=== PATIENT | female | born 1950 | race Caucasian/White ===

== ENCOUNTER 2016-07-28 14:42 | Emergency (ER) | payer MEDICARE, MEDICAID ==
[~2016-07-28 14:42] MED LIST: ACTOS30 MG PO; DILTIAZEM HCL30 MG PO; FLUOXETINE HCL20 MG PO; FOSAMAX70 M1 PO; GLIPIZIDE10 MG PO; GLUCOSAMINE CH1 EAC2 PO; LIPITOR20 MG PO; MELOXICAM15 MG PO; METFORMIN HCL500 M2 PO; METFORMIN HCL500 MG PO; MULTIVITAMIN1 TAB PO; NORCO 5-325 TA1 EACH PO; NORCO 5/325 TAB1 TAB PO; UNICOMPLEX-M1 TAB PO; VITAMIN D2000 UNIT PO; ZESTORETIC PO
[2016-07-28] MEDS ORDERED: NORCO 5-325 TA1 EACH PO (16:21)
== END 2016-07-28 16:27 ==
LOC: EDMED 14:42
DX: S39.012A Strain of muscle, fascia and tendon of lower back, initial encounter (principal); I12.9 Hypertensive chronic kidney disease with stage 1 through stage 4 chronic kidney disease, or unspecified chronic kidney disease; E11.22 Type 2 diabetes mellitus with diabetic chronic kidney disease; N18.9 Chronic kidney disease, unspecified; E03.9 Hypothyroidism, unspecified; Z98.890 Other specified postprocedural states; Z90.49 Acquired absence of other specified parts of digestive tract; Z88.1 Allergy status to other antibiotic agents; Z88.5 Allergy status to narcotic agent; X58.XXXA Exposure to other specified factors, initial encounter
CPT/HCPCS: J1170

== ENCOUNTER 2016-11-16 19:29 | Emergency (ER) | payer MEDICARE, MEDICAID ==
[~2016-11-16] VITALS: Ht 154.9 cm; Wt 117.9 kg
[2016-11-16] MEDS ORDERED: FEOSOL325 M1 PO (21:07)
[2016-11-16] MEDS ORDERED: NORVASC5 M2 PO (21:09)
[2016-11-16] MEDS ORDERED: GLUCOTROL10 M1 PO (21:10)
[2016-11-16] MEDS ORDERED: LEXAPRO10 M2 PO (21:10)
[2016-11-16] MEDS ORDERED: VOLTAREN100 G1 (21:11)
[2016-11-16] MEDS ORDERED: MELATONIN5 M5 PO (21:12)
[2016-11-16] MEDS ORDERED: SYNTHROID100 MC1 PO (21:12)
[2016-11-16] MEDS ORDERED: CALCIUM CARBON600 M2 PO (21:13)
== END 2016-11-16 23:20 ==
LOC: EDMED 19:29
DX: S06.0X0A Concussion without loss of consciousness, initial encounter (principal); S30.0XXA Contusion of lower back and pelvis, initial encounter; S83.91XA Sprain of unspecified site of right knee, initial encounter; W18.39XA Other fall on same level, initial encounter; Y92.019 Unspecified place in single-family (private) house as the place of occurrence of the external cause